=== PATIENT | male | born 1960 | race Caucasian/White ===

== ENCOUNTER 2018-11-09 15:43 | Observation (INO) ==
[2018-11-09 16:35] LABS: Basophils # 0.1 10*3/uL (0.0-0.2); Basophils % 0.8 % (0.0-0.8); Eosinophils # 0.1 10*3/uL (0.0-0.87); Eosinophils % 1.4 % (0.00-10.9); Hematocrit 45.5 VOL% (42.0-52.0); Hemoglobin 15.4 GM/DL (14.0-18.0); Lymphocytes # 2.5 10*3/uL (1.4-4.0); Lymphocytes % 24.7 % (21.2-54.2); Mean Corpuscular HGB Conc 33.8 GM/DL (32-36); Mean Corpuscular Volume 90.5 FL (87-102); Mean Platelet Volume 10.6 FL (9.6-12.0); Monocytes % 8.5 % (1.7-12.7); Neutrophils % 63.6 % (38.7-73.9); Platelet Count 191 T/CUMM (130-400); Red Blood Count 5.03 MC/CUMM (3.8-5.5); Red Cell Distribution Width 12.6 % (9.3-17.3); White Blood Count 10.3 T/CUMM (4-12)
[2018-11-09 17:02] LABS: Alanine Aminotransferase 34 U/L (16-61); Alkaline Phosphatase 69 U/L (45-117); Aspartate Amino Transferase 16 U/L (0-37); Bilirubin,Total < 0.39 MG/DL (0.2-1.0); Blood Urea Nitrogen 10 MG/DL (7-18); Calcium 8.5 MG/DL (8.5-10.1); Glucose 103 MG/DL (74-106); Total Protein 7.1 G/DL (6.4-8.3)
[2018-11-09 17:18] LABS: Apearance,Urine CLEAR (Clear); Bacteria,Urine Occasional /HPF (Few); Bilirubin,Urine Negative (Negative); Blood, Urine Negative (Negative); Glucose,Urine (UA) Negative (Negative); Ketones,Urine Negative (Negative); Mucus,Urine Many /LPF (Occasional); Nitrite,Urine Negative (Negative); Protein,Urine Negative; RBC,Urine <1 /HPF (0-4); Urine Color Yellow (Yellow); Urine Specific Gravity 1.023 (1.001-1.035); Urine Urobilinogen < 2.0 EU/DL (0.2-1.0); WBC,Urine 1 /HPF (0-6)
[2018-11-09 17:26] LABS: Barbiturates Screen,Urine Negative (Negative); Benzodiazepines Screen,Urine Negative (Negative); Cannabinoid Screen,Urine Negative (Negative); Opiate Screen,Urine Positive (Negative); Phencyclidine Screen,Urine Negative (Negative)
[2018-11-09] MEDS ORDERED: ORPHENADRINE 60 MG/2 ML VIAL IV STA (17:43)
[2018-11-09 17:46] LABS: Troponin I < 0.015 NG/ML (0.00-0.045)
[2018-11-09] MEDS ORDERED: hydrALAZINE 20 MG/1 ML VIAL IV STA (18:18)
[2018-11-09] MEDS ORDERED: hydrALAZINE 20 MG/1 ML VIAL ONE (18:18)
[2018-11-09] MEDS ORDERED: diphenhydrAMINE 50 MG/1 ML VIAL IV STA (19:26)
[2018-11-09] MEDS ORDERED: ONDANSETRON 4 MG/2 ML VIAL IV PRN (19:55)
[2018-11-09] MEDS ORDERED: ENOXAPARIN 40 MG/0.4 ML SYRINGE SUBCUT SCH (22:30)
[2018-11-09] MEDS: METOPROLOL TARTRATE 50 MG TABLET PO SCH (22:56)
[2018-11-09] MEDS: ROSUVASTATIN 10 MG TABLET PO SCH (22:56)
[2018-11-09] MEDS: MORPHINE 4 MG/1 ML VIAL IV PRN (22:56)
[2018-11-09] MEDS: ALLOPURINOL 100 MG TABLET PO SCH (22:56)
[2018-11-10 02:21] LABS: Basophils # 0.1 10*3/uL (0.0-0.2); Basophils % 0.6 % (0.0-0.8); Eosinophils # 0.2 10*3/uL (0.0-0.87); Eosinophils % 1.7 % (0.00-10.9); Hematocrit 42.7 VOL% (42.0-52.0); Hemoglobin 14.5 GM/DL (14.0-18.0); Immature Granulocytes % 0.7 %; Immature Granulocytes Absolute 0.09 #; Lymphocytes # 3.1 10*3/uL (1.4-4.0); Mean Corpuscular Volume 89.1 FL (87-102); Mean Platelet Volume 10.8 FL (9.6-12.0); Monocytes % 8.7 % (1.7-12.7); Neutrophils % 63.3 % (38.7-73.9); Platelet Count 205 T/CUMM (130-400); Red Blood Count 4.79 MC/CUMM (3.8-5.5); Red Cell Distribution Width 12.8 % (9.3-17.3); White Blood Count 12.6 T/CUMM (4-12)
[2018-11-10 02:32] LABS: Calcium 8.8 MG/DL (8.5-10.1); Osmolality,Calculated 284.8 MOS/KG (273-304)
[2018-11-10] MEDS: MORPHINE 4 MG/1 ML VIAL IV PRN (06:07)
[2018-11-10] MEDS: METOPROLOL TARTRATE 50 MG TABLET PO SCH (08:42)
[2018-11-10] MEDS: FUROSEMIDE 20 MG TABLET PO SCH (08:42)
[2018-11-10] MEDS: LISINOPRIL 10 MG TABLET PO SCH (08:42)
[2018-11-10] MEDS ORDERED: CLOPIDOGREL 75 MG TABLET PO SCH (09:00)
[2018-11-10] MEDS ORDERED: PANTOPRAZOLE 40 MG TABLET PO SCH (09:00)
[2018-11-10] MEDS ORDERED: NITROGLYCERIN SL 0.4 MG TABLET SL PRN (10:33)
[2018-11-10] MEDS ORDERED: POTASSIUM CHLORIDE 20 MEQ TABLET PO ONE (11:13)
[2018-11-10] MEDS ORDERED: ACETAMINOPHEN 325 MG TABLET PO PRN (11:28)
[2018-11-10] MEDS: ASPIRIN EC 81 MG TABLET PO SCH (11:44)
[2018-11-10] MEDS ORDERED: MAGNESIUM SULF RIDER 2 GM in PREMIX 1 EACH IV PRN (14:18)
[2018-11-10] MEDS ORDERED: DIAZEPAM 5 MG TABLET PO ONE (14:18)
[2018-11-10] MEDS ORDERED: diphenhydrAMINE CAP 25 MG CAPSULE PO ONE (14:18)
[2018-11-10] MEDS ORDERED: POTASSIUM CHLORIDE RIDER 10 MEQ in PREMIX 1 EACH IV PRN (14:18)
[2018-11-10] MEDS ORDERED: SODIUM CHLORIDE 0.9% 1,000 ML IV SCH ×2 (14:30→19:29)
[2018-11-10] MEDS ORDERED: MIDAZOLAM 2 MG/2 ML VIAL ONE ×2 (15:42→16:32)
[2018-11-10] MEDS ORDERED: LIDOCAINE 1% 20 ML VIAL ONE (15:42)
[2018-11-10] MEDS ORDERED: fentaNYL 100 MCG/2 ML VIAL ONE ×2 (15:43→16:32)
[2018-11-10] MEDS ORDERED: HEPARIN 5,000 UNIT/1 ML VIAL ONE (15:58)
[2018-11-10] MEDS ORDERED: TIROFIBAN 5,000 MCG/100 ML PREMIX IV ONE (16:33)
[2018-11-10] MEDS ORDERED: TICAGRELOR 90 MG TABLET ONE (18:06)
[2018-11-10] MEDS ORDERED: NIFEdipine 10 MG CAPSULE PO ONE (18:18)
[2018-11-10] MEDS ORDERED: ZALEPLON 5 MG CAPSULE PO PRN (18:31)
[2018-11-10] MEDS: CILOSTAZOL 50 MG TABLET PO SCH (19:26)
[2018-11-10 19:44] LABS: Troponin I < 0.015 NG/ML (0.00-0.045)
[2018-11-10] MEDS: fentaNYL 100 MCG/2 ML VIAL IV PRN ×2 (20:02→22:09)
[2018-11-10] MEDS: ALLOPURINOL 100 MG TABLET PO SCH (21:09)
[2018-11-10] MEDS: CARVEDILOL 3.125 MG TABLET PO SCH (21:09)
[2018-11-10] MEDS: ROSUVASTATIN 10 MG TABLET PO SCH (21:09)
[2018-11-10] MEDS: TICAGRELOR 90 MG TABLET PO SCH (21:11)
[2018-11-11] MEDS: fentaNYL 100 MCG/2 ML VIAL IV PRN ×2 (02:11→05:10)
[2018-11-11 02:30] LABS: Basophils # 0.1 10*3/uL (0.0-0.2); Basophils % 0.5 % (0.0-0.8); Eosinophils # 0.2 10*3/uL (0.0-0.87); Eosinophils % 1.6 % (0.00-10.9); Hematocrit 42.3 VOL% (42.0-52.0); Hemoglobin 14.4 GM/DL (14.0-18.0); Immature Granulocytes % 0.9 %; Lymphocytes # 2.3 10*3/uL (1.4-4.0); Lymphocytes % 20.1 % (21.2-54.2); Mean Corpuscular Volume 88.9 FL (87-102); Mean Platelet Volume 10.7 FL (9.6-12.0); Monocytes % 7.2 % (1.7-12.7); Neutrophils % 69.7 % (38.7-73.9); Platelet Count 200 T/CUMM (130-400); Red Blood Count 4.76 MC/CUMM (3.8-5.5); Red Cell Distribution Width 12.6 % (9.3-17.3); White Blood Count 11.6 T/CUMM (4-12)
[2018-11-11 02:57] LABS: Calcium 8.5 MG/DL (8.5-10.1); Osmolality,Calculated 283.1 MOS/KG (273-304)
[2018-11-11 03:02] LABS: Troponin I 0.184 NG/ML (0.00-0.045)
[2018-11-11 08:17] LABS: Risk Ratio 5.64; VLDL CHOLESTEROL 90.4 MG/DL
[2018-11-11] MEDS ORDERED: PANTOPRAZOLE 40 MG TABLET PO SCH (09:00)
[2018-11-11] MEDS: CILOSTAZOL 50 MG TABLET PO SCH (09:31)
[2018-11-11] MEDS: ASPIRIN EC 81 MG TABLET PO SCH (09:31)
[2018-11-11] MEDS: TICAGRELOR 90 MG TABLET PO SCH (09:31)
[2018-11-11] MEDS: FUROSEMIDE 20 MG TABLET PO SCH (09:31)
[2018-11-11] MEDS: LISINOPRIL 10 MG TABLET PO SCH (09:31)
[2018-11-11] MEDS: CARVEDILOL 3.125 MG TABLET PO SCH (09:32)
[2018-11-11 10:56] LABS: Troponin I 0.341 NG/ML (0.00-0.045)
[2018-11-11 11:45] VITALS: BP 112/70
== END 2018-11-11 13:30 | disposition home or self-care (01) ==
LOC: N.ED 15:43 → N.EDINP 15:43 → SUATTDRO 19:55 → N.TELES 21:08
PROVIDERS: ADMIT Internal Medicine; ATTEND Internal Medicine Cardiovascular Disease
PROC: CLCCHCL (ICD-10-PCS; 2018-11-10 16:15)

== ENCOUNTER 2022-04-23 12:18 | Observation (INO) ==
[2022-04-23] MEDS ORDERED: ACETAMINOPHEN 325 MG TABLET PO PRN (12:21)
[2022-04-23] MEDS ORDERED: ONDANSETRON 4 MG/2 ML VIAL IV PRN (12:21)
[2022-04-23] MEDS ORDERED: MORPHINE 2 MG/1 ML SYRINGE IV PRN (12:21)
[2022-04-23] MEDS ORDERED: BISACODYL 5 MG TABLET PO PRN (12:21)
[2022-04-23] MEDS ORDERED: ZALEPLON 5 MG CAPSULE PO PRN (12:21)
[2022-04-23] MEDS ORDERED: SIMETHICONE CHEW 125 MG TABLET PO PRN (12:21)
[2022-04-23] MEDS ORDERED: CALCIUM CARBONATE CHEW 500 MG TABLET PO PRN (12:21)
[2022-04-23] MEDS ORDERED: ALUMINUM/MAGNES/SIMETH MAX STR 30 ML UDCUP PO PRN (12:21)
[2022-04-23] MEDS ORDERED: SODIUM CHLORIDE 0.9% 1,000 ML IV SCH (12:30)
[2022-04-23] MEDS ORDERED: NITROGLYCERIN SL 0.4 MG TABLET SL PRN (12:46)
[2022-04-23 13:55] LABS: Basophils # 0.1 10*3/uL (0.0-0.2); Basophils % 0.6 % (0.0-0.8); Eosinophils # 0.3 10*3/uL (0.0-0.87); Eosinophils % 2.9 % (0.00-10.9); Hemoglobin 14.2 GM/DL (14.0-18.0); Immature Granulocytes % 0.7 %; Immature Granulocytes Absolute 0.06 #; Lymphocytes # 2.6 10*3/uL (1.4-4.0); Lymphocytes % 29.1 % (21.2-54.2); Mean Corpuscular HGB Conc 32.3 GM/DL (32-36); Mean Corpuscular Volume 91.9 FL (87-102); Mean Platelet Volume 10.5 FL (9.6-12.0); Monocytes # 0.6 10*3/uL (0.11-0.8); Neutrophils % 59.7 % (38.7-73.9); Platelet Count 192 T/CUMM (130-400); Red Blood Count 4.79 MC/CUMM (3.8-5.5); Red Cell Distribution Width 12.8 % (9.3-17.3); White Blood Count 8.77 T/CUMM (4-12)
[2022-04-23 14:23] LABS: Albumin 3.9 G/DL (3.4-5.0); Bilirubin,Total 0.5 MG/DL (0.20-1.00); Calcium 9.4 MG/DL (8.5-10.1); Potassium 4.9 MMOL/L (3.5-5.1); Thyroid Stimulating Hormone 1.7 uIU/ml (0.358-3.74); Total Protein 7.2 G/DL (6.4-8.2)
[2022-04-23] MEDS ORDERED: lisinopriL 20 MG TABLET PO SCH (21:00)
[2022-04-23] MEDS ORDERED: RANOLAZINE 500 MG TABLET PO SCH (21:00)
[2022-04-23] MEDS ORDERED: ROSUVASTATIN 20 MG TABLET PO SCH (21:00)
[2022-04-23] MEDS ORDERED: carvediloL 3.125 MG TABLET PO SCH (21:00)
[2022-04-23] MEDS ORDERED: ENOXAPARIN 40 MG/0.4 ML SYRINGE SUBCUT SCH (21:00)
[2022-04-24 05:23] LABS: Basophils % 0.4 % (0.0-0.8); Eosinophils # 0.2 10*3/uL (0.0-0.87); Eosinophils % 2.3 % (0.00-10.9); Hematocrit 37.7 VOL% (42.0-52.0); Hemoglobin 12.8 GM/DL (14.0-18.0); Immature Granulocytes % 0.6 %; Immature Granulocytes Absolute 0.06 #; Lymphocytes # 2.5 10*3/uL (1.4-4.0); Mean Corpuscular Volume 90.6 FL (87-102); Mean Platelet Volume 10.4 FL (9.6-12.0); Monocytes # 0.8 10*3/uL (0.11-0.8); Monocytes % 7.8 % (1.7-12.7); Neutrophils % 63.9 % (38.7-73.9); Platelet Count 153 T/CUMM (130-400); Red Blood Count 4.16 MC/CUMM (3.8-5.5); Red Cell Distribution Width 12.6 % (9.3-17.3)
[2022-04-24 05:58] LABS: Calcium 8.4 MG/DL (8.5-10.1); Osmolality,Calculated 284.1 MOS/KG (273-304); Potassium 3.6 MMOL/L (3.5-5.1); Risk Ratio 3.83; VLDL Cholesterol 82.8 MG/DL
[2022-04-24 08:35] VITALS: BP 127/73
[2022-04-24] MEDS ORDERED: ASPIRIN EC 81 MG TABLET PO SCH (09:00)
[2022-04-24] MEDS ORDERED: CHOLECALCIFEROL 1,000 UNIT TABLET PO SCH (09:00)
[2022-04-24] MEDS ORDERED: CYANOCOBALAMIN 500 MCG TABLET PO SCH (09:00)
[2022-04-24] MEDS ORDERED: CLOPIDOGREL 75 MG TABLET PO SCH (09:00)
[2022-04-24] MEDS ORDERED: EZETIMIBE 10 MG TABLET PO SCH (09:00)
[2022-04-24] MEDS ORDERED: amLODIPine 2.5 MG TABLET PO SCH (09:00)
[2022-04-24] MEDS ORDERED: PANTOPRAZOLE 40 MG TABLET PO SCH (09:00)
[2022-04-24] MEDS ORDERED: OMEGA 3 ACID ETHYL ESTERS 1 GM CAPSULE PO SCH (09:00)
== END 2022-04-24 09:52 | disposition home or self-care (01) ==
LOC: N.TELES 13:27 → INTOOBSV 13:27
PROVIDERS: ADMIT Internal Medicine Cardiovascular Disease; ATTEND Internal Medicine Cardiovascular Disease
PROC: CLCCHCL (ICD-10-PCS; 2022-04-23 17:15)